=== PATIENT | female | born 1955 | race Caucasian/White ===

== ENCOUNTER → 2018-01-10 14:12 | Outpatient (CLI) | payer OTHER, SELFPAY ==
[2018-01-10 14:54] LABS: Add Manual Diff / Slide Review NO; Basophils Percent Auto 0.3 % (0-2); Eosinophils Percent Auto 0.6 % (2-4); Hematocrit 42.3 % (36-46); Hemoglobin 14.9 g/dL (12.0-16.0); Lymphocytes Percent Auto 16.4 % (25-40); Mean Corpuscular HGB Conc 35.3 % (30-36); Mean Corpuscular Hemoglobin 36.4 PG (26-34); Mean Corpuscular Volume 103.3 fL (80-100); Monocytes Percent Auto 9.5 % (3-14); Neutrophils Absolute Auto 5600 /uL (3000-5900); Neutrophils Percent Auto 73.2 % (50-75); Platelet Count 205 X10^3/uL (150-400); Red Cell Distribution Width 13.6 % (11.6-14.8); White Blood Cell Count 7.7 X10^3/uL (4.5-11.0)
[2018-01-10 16:15] LABS: Vitamin B12 385 pg/mL (239-931)
== END ==
PROVIDERS: PCP Internal Medicine; Visit Provider Internal Medicine
DX: D75.89 Other specified diseases of blood and blood-forming organs (principal)
CPT/HCPCS: 36415; 82607; 82746; 85025

== ENCOUNTER → 2018-12-24 14:15 | Outpatient (CLI) | payer OTHER, SELFPAY ==
[2018-12-24 15:25] LABS: Add Manual Diff / Slide Review NO; Basophils Absolute Auto 0 /uL (0-100); Basophils Percent Auto 0.5 % (0-2); Eosinophils Absolute Auto 100 /uL (0-450); Eosinophils Percent Auto 0.8 % (2-4); Hematocrit 45.7 % (36-46); Lymphocytes Absolute Auto 1600 /uL (1100-4500); Lymphocytes Percent Auto 20.4 % (25-40); Mean Corpuscular Hemoglobin 35.7 PG (26-34); Mean Corpuscular Volume 102.2 fL (80-100); Monocytes Absolute Auto 700 /uL (0-900); Monocytes Percent Auto 8.1 % (3-14); Neutrophils Absolute Auto 5700 /uL (1500-7000); Neutrophils Percent Auto 70.2 % (50-75); Platelet Count 233 X10^3/uL (150-400); Red Blood Cell Count 4.47 X10^6/uL (4.0-5.2); Red Cell Distribution Width 14.1 % (11.6-14.8); White Blood Cell Count 8.1 X10^3/uL (4.5-11.0)
[2018-12-24 15:49] LABS: Erythrocyte Sedimentation Rate 18 MM/HR (0-20)
[2018-12-24 16:14] LABS: Alanine Aminotransferase 42 IU/L (9-52); Albumin Globulin Ratio 1.2 (1.0-2.8); Alkaline Phosphatase 82 U/L (38-126); Aspartate Aminotransferase 43 IU/L (14-36); BUN Creatinine Ratio 17.1 (6-22); Bilirubin Total 0.6 mg/dL (0.2-1.3); Blood Urea Nitrogen 12 mg/dL (7-17); C-Reactive Protein Quant 0.8 mg/dL (<1.0); Calcium 9.7 mg/dL (8.4-10.2); Carbon Dioxide 30 mmol/L (22-32); Chloride 101 mmol/L (98-107); Cholesterol 177 mg/dL (140-199); Estimated Glomerular Filt Rate > 60.0 mL/min (>60); Globulin 3.3 g/dL (1.7-4.1); Glucose 118 mg/dL (80-110); HDL Cholesterol 57 mg/dL (40-60); HEMOLYSIS < 15 (0-50); LDL Cholesterol Calculated 73 mg/dL (<100); Potassium 3.8 mmol/L (3.4-5.1); Sodium 138 mmol/L (137-145); Total Protein 7.3 g/dL (6.3-8.2); Triglycerides 234 mg/dL (35-150)
[2018-12-24 16:25] LABS: Free T4, Direct Thyroxine 1.27 ng/dL (0.78-2.19)
[2018-12-24 16:39] LABS: Thyroid Stimulating Hormone 1.92 uIU/mL (0.47-4.68)
== END ==
PROVIDERS: PCP Internal Medicine; Visit Provider Internal Medicine
DX: D75.89 Other specified diseases of blood and blood-forming organs (principal); I10 Essential (primary) hypertension; R94.5 Abnormal results of liver function studies; R53.83 Other fatigue
CPT/HCPCS: 36415; 80053; 80061; 84439; 84443; 85025; 85651; 86140

== ENCOUNTER → 2020-06-07 08:22 | Outpatient (CLI) | payer OTHER, SELFPAY ==
[2020-06-07 08:54] LABS: Add Manual Diff / Slide Review NO; Basophils Absolute Auto 0 /uL (0-100); Basophils Percent Auto 0.4 % (0-2); Eosinophils Absolute Auto 100 /uL (0-450); Eosinophils Percent Auto 1.3 % (2-4); Hematocrit 44.7 % (36-46); Hemoglobin 15.5 g/dL (12.0-16.0); Lymphocytes Absolute Auto 1300 /uL (1100-4500); Lymphocytes Percent Auto 24.6 % (25-40); Mean Corpuscular HGB Conc 34.7 % (30-36); Mean Corpuscular Hemoglobin 35.7 PG (26-34); Monocytes Absolute Auto 600 /uL (0-900); Monocytes Percent Auto 11.9 % (3-14); Neutrophils Absolute Auto 3200 /uL (1500-7000); Neutrophils Percent Auto 61.8 % (50-75); Platelet Count 197 X10^3/uL (150-400); Red Blood Cell Count 4.34 X10^6/uL (4.0-5.2); Red Cell Distribution Width 13.8 % (11.6-14.8); White Blood Cell Count 5.1 X10^3/uL (4.5-11.0)
[2020-06-07 09:20] LABS: Alanine Aminotransferase 113 IU/L (<35); Albumin 3.8 g/dL (3.5-5.0); Albumin Globulin Ratio 1.1 (1.0-2.8); Alkaline Phosphatase 76 U/L (38-126); Aspartate Aminotransferase 85 IU/L (14-36); BUN Creatinine Ratio 15.9 (6-22); Bilirubin Total 0.8 mg/dL (0.2-1.3); Blood Urea Nitrogen 11 mg/dL (7-17); Calcium 8.9 mg/dL (8.4-10.2); Carbon Dioxide 33 mmol/L (22-32); Chloride 106 mmol/L (98-107); Cholesterol 128 mg/dL (140-199); Estimated Glomerular Filt Rate > 60.0 mL/min (>60); Globulin 3.4 g/dL (1.7-4.1); Glucose 124 mg/dL (80-110); HDL Cholesterol 33 mg/dL (40-60); HEMOLYSIS < 15 (0-50); LDL Cholesterol Calculated 72 mg/dL (<100); Potassium 4.5 mmol/L (3.4-5.1); Sodium 139 mmol/L (137-145); Total Protein 7.2 g/dL (6.3-8.2); Triglycerides 114 mg/dL (35-150)
[2020-06-07 09:53] LABS: TSH w/ Reflex to FT4 2.04 uIU/mL (0.47-4.68)
== END ==
PROVIDERS: PCP Internal Medicine; Referring Provider Internal Medicine; Visit Provider Internal Medicine
DX: I10 Essential (primary) hypertension (principal); R94.5 Abnormal results of liver function studies; D75.89 Other specified diseases of blood and blood-forming organs
CPT/HCPCS: 36415; 80053; 80061; 84443; 85025

== ENCOUNTER → 2020-06-17 11:05 | Outpatient (CLI) | payer OTHER, SELFPAY ==
--- NOTE | 2020-06-17 | DI.MG.S_ITS ---
BILATERAL DIGITAL SCREENING MAMMOGRAM 3D/2D WITH CAD: 06/17/2020 CLINICAL: Routine screening. Comparison is made to exams dated: 06/06/2017 mammogram, 08/14/2014 mammogram, and 06/18/2009 mammogram - [facility]. There are scattered fibroglandular elements in both breasts. Current study was also evaluated with a Computer Aided Detection (CAD) system. No significant masses, calcifications, or other findings are seen in either breast. There has been no significant interval change. IMPRESSION: NEGATIVE There is no mammographic evidence of malignancy. A 1 year screening mammogram is recommended. This exam was interpreted at Station ID: [id number]. NOTE: For mammograms, a report in lay terms will be sent to the patient. Approximately 15% of breast malignancies will not be visualized mammographically. In the management of a palpable breast mass, a negative mammogram must not discourage biopsy of a clinically suspicious lesion. Electronically Signed By: Luis Manuel Gaines acr/jack:06/17/2020 12:04:11 letter sent: Normal Exam ACR BI-RADS Category 1: Negative 3341F
== END ==
PROVIDERS: PCP Internal Medicine; Referring Provider Internal Medicine; Visit Provider Internal Medicine
DX: Z12.31 Encounter for screening mammogram for malignant neoplasm of breast (principal)
CPT/HCPCS: 77063; 77067

== ENCOUNTER → 2021-06-07 07:08 | Outpatient (CLI) | payer OTHER, SELFPAY ==
[2021-06-07 08:55] LABS: Alanine Aminotransferase 58 IU/L (<35); Albumin 3.6 g/dL (3.5-5.0); Albumin Globulin Ratio 1.2 (1.0-2.8); Alkaline Phosphatase 69 U/L (38-126); Aspartate Aminotransferase 51 IU/L (14-36); BUN Creatinine Ratio 15.9 (6-22); Bilirubin Total 0.7 mg/dL (0.2-1.3); Blood Urea Nitrogen 11 mg/dL (7-17); Carbon Dioxide 30 mmol/L (22-32); Chloride 105 mmol/L (98-107); Cholesterol 169 mg/dL (140-199); Estimated Glomerular Filt Rate > 60.0 mL/min (>60); Glucose 127 mg/dL (80-110); HDL Cholesterol 57 mg/dL (40-60); HEMOLYSIS < 15 (0-50); LDL Cholesterol Calculated 80 mg/dL (<100); Potassium 4.2 mmol/L (3.4-5.1); Sodium 141 mmol/L (137-145); Total Protein 6.6 g/dL (6.3-8.2); Triglycerides 161 mg/dL (35-150)
== END ==
PROVIDERS: PCP Internal Medicine; Referring Provider Internal Medicine; Visit Provider Internal Medicine
DX: I10 Essential (primary) hypertension (principal); R94.5 Abnormal results of liver function studies
CPT/HCPCS: 36415; 80053; 80061

== ENCOUNTER → 2022-05-29 14:23 | Outpatient (CLI) | payer OTHER, SELFPAY ==
--- NOTE | 2022-05-29 14:25 | DI.MG.S_ITS ---
BILATERAL DIGITAL SCREENING MAMMOGRAM 3D/2D WITH CAD: 05/29/2022 CLINICAL: Routine screening. Comparison is made to exams dated: 06/17/2020 mammogram, 06/06/2017 mammogram, 08/14/2014 mammogram, and 06/18/2009 mammogram - [facility]. There are scattered areas of fibroglandular density in both breasts (category b / 25%-50% glandular tissue). Current study was also evaluated with a Computer Aided Detection (CAD) system. No significant masses, calcifications, or other findings are seen in either breast. There has been no significant interval change. IMPRESSION: NEGATIVE There is no mammographic evidence of malignancy. A 1 year screening mammogram is recommended. Based on the Tyrer Cuzick model (a risk assessment model) the patient's lifetime risk is 8.6% and her 10 year risk is 4.0%. According to the ACR, ACS, and NCCN guidelines, an annual breast MRI exam along with mammogram is recommended if the patient's lifetime risk is 20% or greater. This exam was interpreted at Station ID: [id number]. NOTE: For mammograms, a report in lay terms will be sent to the patient. Approximately 15% of breast malignancies will not be visualized mammographically. In the management of a palpable breast mass, a negative mammogram must not discourage biopsy of a clinically suspicious lesion. Electronically Signed By: Dorian ellis/jack:05/29/2022 17:04:43 letter sent: Normal Exam ACR BI-RADS Category 1: Negative 3341F
== END ==
PROVIDERS: PCP Internal Medicine; Referring Provider Internal Medicine; Visit Provider Internal Medicine
DX: Z12.31 Encounter for screening mammogram for malignant neoplasm of breast (principal)
CPT/HCPCS: 77063; 77067

== ENCOUNTER → 2022-06-06 08:34 | Outpatient (CLI) | payer OTHER, SELFPAY ==
[2022-06-06 10:23] LABS: Alanine Aminotransferase 51 IU/L (<35); Albumin 3.7 g/dL (3.5-5.0); Albumin Globulin Ratio 1.1 (1.0-2.8); Alkaline Phosphatase 80 U/L (38-126); Aspartate Aminotransferase 64 IU/L (14-36); BUN Creatinine Ratio 18.2 (6-22); Bilirubin Total 1.2 mg/dL (0.2-1.3); Blood Urea Nitrogen 12 mg/dL (7-17); Calcium 8.5 mg/dL (8.4-10.2); Carbon Dioxide 28 mmol/L (22-32); Chloride 101 mmol/L (98-107); Estimated Glomerular Filt Rate > 60 mL/min (>60); Globulin 3.4 g/dL (1.7-4.1); Glucose 142 mg/dL (80-110); HEMOLYSIS 24 (0-50); Potassium 4.3 mmol/L (3.4-5.1); Sodium 138 mmol/L (137-145); Total Protein 7.1 g/dL (6.3-8.2)
== END ==
PROVIDERS: PCP Internal Medicine; Referring Provider Internal Medicine; Visit Provider Internal Medicine
DX: I10 Essential (primary) hypertension (principal); R94.5 Abnormal results of liver function studies
CPT/HCPCS: 36415; 80053

== ENCOUNTER → 2022-06-19 16:09 | Outpatient (CLI) | payer MEDICARE, OTHER, SELFPAY ==
[2022-06-20 18:40] LABS: Hemoglobin A1C% w Est Avg Glu 5.9 % (4.0-6.0)
== END ==
PROVIDERS: PCP Internal Medicine; Referring Provider Internal Medicine; Visit Provider Internal Medicine
DX: R73.9 Hyperglycemia, unspecified (principal); E66.01 Morbid (severe) obesity due to excess calories
CPT/HCPCS: 36415; 83036

== ENCOUNTER → 2022-07-03 11:45 | Outpatient (CLI) | payer MEDICARE, OTHER, SELFPAY ==
[2022-07-03 13:55] LABS: COVID19 -Nasal RAPID Negative (Negative)
== END ==
PROVIDERS: PCP Internal Medicine; Visit Provider Surgery
DX: Z01.812 Encounter for preprocedural laboratory examination (principal); Z20.822 Contact with and (suspected) exposure to COVID-19
CPT/HCPCS: 87635; C9803

== ENCOUNTER → 2022-12-19 10:26 | Outpatient (CLI) | payer MEDICARE, OTHER, SELFPAY ==
[2022-12-19 11:46] LABS: BUN Creatinine Ratio 15.9 (6-22); Blood Urea Nitrogen 10 mg/dL (7-17); Calcium 8.7 mg/dL (8.4-10.2); Carbon Dioxide 28 mmol/L (22-32); Chloride 104 mmol/L (98-107); Estimated Glomerular Filt Rate > 60 mL/min (>60); Glucose 121 mg/dL (80-110); HEMOLYSIS < 15 (0-50); Potassium 4.1 mmol/L (3.4-5.1); Sodium 137 mmol/L (137-145)
[2022-12-20 05:44] LABS: x Labcorp Estim. Avg Glu (eAG) 120 mg/dL (.); x Labcorp Hemoglobin A1c 5.8 % (4.8-5.6)
== END ==
PROVIDERS: PCP Internal Medicine; Referring Provider Internal Medicine; Visit Provider Internal Medicine
DX: E11.9 Type 2 diabetes mellitus without complications (principal)
CPT/HCPCS: 36415; 80048; 83036

== ENCOUNTER → 2023-06-12 08:46 | Outpatient (CLI) | payer MEDICARE, OTHER, SELFPAY ==
[2023-06-12 10:34] LABS: Alanine Aminotransferase 60 IU/L (<35); Albumin 3.8 g/dL (3.5-5.0); Albumin Globulin Ratio 1.2 (1.0-2.8); Alkaline Phosphatase 77 U/L (38-126); Aspartate Aminotransferase 65 IU/L (14-36); BUN Creatinine Ratio 20.3 (6-22); Bilirubin Total 1.2 mg/dL (0.2-1.3); Bilirubin Unconjugated 0.9 mg/dL (0.0-1.1); Blood Urea Nitrogen 14 mg/dL (7-17); Calcium 9.3 mg/dL (8.4-10.2); Carbon Dioxide 30 mmol/L (22-32); Chloride 100 mmol/L (98-107); Estimated Glomerular Filt Rate > 60 mL/min (>60); Globulin 3.3 g/dL (1.7-4.1); Glucose 154 mg/dL (80-110); HEMOLYSIS < 15 (0-50); Potassium 4.3 mmol/L (3.4-5.1); Sodium 134 mmol/L (137-145); Total Protein 7.1 g/dL (6.3-8.2)
== END ==
PROVIDERS: PCP Internal Medicine; Referring Provider Internal Medicine; Visit Provider Internal Medicine
DX: I10 Essential (primary) hypertension (principal); R94.5 Abnormal results of liver function studies
CPT/HCPCS: 36415; 80048; 80076

== ENCOUNTER → 2023-06-22 11:31 | Outpatient (CLI) | payer MEDICARE, OTHER, SELFPAY ==
[2023-06-22 12:41] LABS: Hemoglobin A1C% w Est Avg Glu 5.9 % (4.0-6.0)
== END ==
PROVIDERS: PCP Internal Medicine; Referring Provider Internal Medicine; Visit Provider Internal Medicine
DX: I10 Essential (primary) hypertension (principal); R73.02 Impaired glucose tolerance (oral)
CPT/HCPCS: 36415; 83036

== ENCOUNTER → 2023-07-03 12:57 | Outpatient (CLI) | payer MEDICARE, OTHER, SELFPAY ==
--- NOTE | 2023-07-03 12:59 | DI.MG.S_ITS ---
BILATERAL DIGITAL SCREENING MAMMOGRAM 3D/2D WITH CAD: 07/03/2023 CLINICAL: Routine screening. Comparison is made to exams dated: 05/29/2022 mammogram, 06/17/2020 mammogram, and 06/06/2017 mammogram - [facility]. Both breasts are almost entirely fatty (category a/<25% glandular tissue). Current study was also evaluated with a Computer Aided Detection (CAD) system. No significant masses, calcifications, or other findings are seen in either breast. There has been no significant interval change. IMPRESSION: NEGATIVE There is no mammographic evidence of malignancy. A 1 year screening mammogram is recommended. Based on the Tyrer Cuzick model (a risk assessment model) the patient's lifetime risk is 5.2% and her 10 year risk is 2.6%. According to the ACR, ACS, and NCCN guidelines, an annual breast MRI exam along with mammogram is recommended if the patient's lifetime risk is 20% or greater. This exam was interpreted at Station ID: [id number]. NOTE: For mammograms, a report in lay terms will be sent to the patient. Approximately 15% of breast malignancies will not be visualized mammographically. In the management of a palpable breast mass, a negative mammogram must not discourage biopsy of a clinically suspicious lesion. Electronically Signed By: Verona beverly/jack:07/03/2023 14:51:06 letter sent: Normal Exam ACR BI-RADS Category 1: Negative 3341F
== END ==
PROVIDERS: PCP Internal Medicine; Referring Provider Internal Medicine; Visit Provider Internal Medicine
DX: Z12.31 Encounter for screening mammogram for malignant neoplasm of breast (principal)
CPT/HCPCS: 77063; 77067

== ENCOUNTER 2023-08-22 16:56 | Emergency (ER) | payer MEDICARE, OTHER, SELFPAY ==
--- NOTE | 2023-08-22 16:59 | DI.CT.S_ITS ---
PROCEDURE: CT HEAD/BRAIN WO CON INDICATIONS: FALL DOWN STAIRS, HEAD/NECK INJURY TECHNIQUE: Noncontrast 4.5 mm thick angled axial sections acquired from the foramen magnum to the vertex, with coronal and sagittal reformats. For radiation dose reduction, the following was used: automated exposure control, adjustment of mA and/or kV according to patient size. COMPARISON: None. FINDINGS: Image quality: Diagnostic. CSF spaces: Basal cisterns are patent. No extra-axial fluid collections. The ventricles are symmetric in size and shape. Brain: No intracranial bleeds or masses. There is cerebral volume loss for age, with resultant ventricular and sulcal prominence. There are periventricular and deep white matter chronic small vessel ischemic changes. There is intracranial internal carotid artery atherosclerosis. Skull and face: Calvarium and visualized facial bones appear intact, without suspicious lesions. Sinuses: Visualized sinuses and mastoids are clear. IMPRESSION: 1. No acute intracranial abnormalities. 2. Cerebral volume loss and chronic microvascular ischemic changes. Dictated by: Trinh Justin M.D. on 08/22/2023 at 17:33 Approved by: Trinh Justin M.D. on 08/22/2023 at 17:34
--- NOTE | 2023-08-22 16:59 | DI.CT.S_ITS ---
PROCEDURE: CT CERVICAL SPINE WO CON INDICATIONS: FALL DOWN STAIRS, HEAD/NECK INJURY TECHNIQUE: Noncontrast 3 mm thick sections acquired from the skull base to the T4 level. Sagittal and coronal reformats were then constructed. For radiation dose reduction, the following was used: automated exposure control, adjustment of mA and/or kV according to patient size. COMPARISON: None. FINDINGS: Image quality: Excellent. Bones: No fractures or dislocations. Moderate degenerative disc and facet disease. Visualized superior ribs are intact. Soft tissues: Prevertebral soft tissues are normal in thickness. No paravertebral hematomas. No apical pneumothoraces. IMPRESSION: No fracture or traumatic subluxation. Dictated by: Trinh Justin M.D. on 08/22/2023 at 17:39 Approved by: Trinh Justin M.D. on 08/22/2023 at 17:42
--- NOTE | 2023-08-22 17:02 | ED_ITS ---
HPI - Fall General Chief Complaint: Wound/Laceration Stated Complaint: Fell down a few stairs, LAC to the head Time Seen by Provider: 08/22/23 16:59 History of Present Illness HPI Narrative: 68-year-old female presents by EMS for fall down several steps with head injury. Patient had several alcoholic beverages at [employer] and slipped, falling several steps and striking her head. Denies LOC. Denies use of blood thinners. Last tetanus shot in 2018. Related Data Previous Rx's Medication Instructions Recorded metoprolol succinate 100 mg 100 mg PO DAILY #90 tabs 07/02/23 tablet,extended release 24 hr Allergies Allergy/AdvReac Type Severity Reaction Status Date / Time No Known Drug Allergies Allergy Verified 06/22/23 10:48 Review of Systems Review of Systems Narrative: Negative except as noted above Patient History Medical History (Updated 08/24/23 @ 07:16 by Ev Barillas MD) Impaired glucose tolerance Lichen sclerosus of female genitalia Morbid obesity Macrocytosis without anemia Rosacea (~2003) Hepatitis (~1985) Gastrointestinal problem (~2014) Abnormal liver function tests (09/27/17) Essential hypertension (08/30/17) Surgical History (Updated 07/14/23 @ 20:19 by Casandra Erickson) Anesthesia History of surgery (~2010) History of tonsillectomy (~1984) Status post appendectomy (~1975) History of third molar tooth extraction (~1970) Family History (Updated 07/14/23 @ 20:20 by Casandra Erickson) Mother History of heart disease Grandmother No problems noted. 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 leisure activities: exercise and other (Gardening, sudoku, puzzles) Smoking Status: Never smoker Tobacco: How many years used: 0 quit status: quit date established (Never Started) second hand exposure: No alcohol intake: current (a couple of drinks a day) substance use type: does not use Smoking Status: Never smoker Exam Initial Vital Signs Initial Vital Signs: Vital Signs Temperature 97.7 F 08/22/23 17:05 Pulse Rate 95 H 08/22/23 17:05 Respiratory Rate 18 08/22/23 17:05 Blood Pressure 124/57 L 08/22/23 17:05 Pulse Oximetry 97 08/22/23 17:05 Oxygen Delivery Method Room Air 08/22/23 17:05 Const: Awake, alert, blood on face Eyes: PERRL, EOMI, conjunctiva normal ENT: Atraumatic, dentition normal, mucous membranes moist Cardiac: regular rate, regular rhythm RESP: unlabored, clear bilaterally, no wheezing GI: Atraumatic, soft, nontender, nondistended, no rebound, no guarding MSK: Atraumatic, full range of motion, pulses equal Skin: Warm, Dry, 4 cm horizontal laceration over left eyebrow Neuro: AO x3, CN II-XII grossly intact, moves all extremities Procedures Laceration Repair Laceration 1: Site: face Side (If applicable): left Size (cm): 4 Description: linear Depth: simple, single layer Local Anesthetic: lidocaine 1% and with epi Amount of anesthesia used (mL): 5 Pre-repair: wound explored, irrigated extensively and deep structures intact Skin layer closed with: nylon Skin layer suture size: 5-0 Number of sutures: 8 Technique: simple, interrupted Course Orders Ordered: Discontinued Medications Diphtheria/Tetanus/Acell Pertussis (Tet,Diph,Pertuss(Acell),Vac/Pf 0.5 Ml Syringe) 0.5 ml IM .ONCE ONE Stop: 08/22/23 17:30 Last Admin: 08/22/23 17:33 Dose: Not Given Documented By: ELSI Lidocaine/Epinephrine (Lidocaine 1% W/Epi) 20 ml SUBCUT NOW ONE Stop: 08/22/23 17:30 Last Admin: 08/22/23 17:37 Dose: 20 ml Documented By: ELSI Vital Signs Vital signs: Vital Signs - 8 hr 08/22/23 17:05 08/22/23 18:06 Temperature 97.7 F Pulse Rate 95 H 82 Respiratory Rate 18 Blood Pressure 124/57 L 94/55 L Pulse Oximetry 97 94 Oxygen Delivery Method Room Air Room Air MDM - Fall Differential Diagnosis Differential diagnosis: Likely concussion with loss of consciousness, concussion without loss of consciousness and other (facial laceration) Lab Data Labs: Point of Care Testing Glucose POC 144 MDM Narrative Medical decision making narrative: Fall down several stairs and alcohol use. Laceration noted to left forehead. CT imaging of brain and C-spine negative for acute traumatic findings. Wound was repaired per procedure note and 8 stitches placed in the forehead. Clean bandage applied and wound care instructions discussed with patient and at bedside. Patient discharged home in stable condition. #415 - Emergency Medicine: Utilization of CT for Minor Blunt Head Trauma (Adult) Patient is 18 or older, presenting with minor blunt head trauma. Head CT (including cosigned orders) was ordered by an emergency palliative care nurse for trauma because the patient: [ ] is vomiting\ severe/dangerous mechanism of injury was identified [ ] is experiencing a severe headache [ ] sustained loss of consciousness [ ] GCS less than 15 [ ] is experiencing amnesia of the event or focal neurologic deficit [ ] sustained injury above the clavicles [ ] is suspected of taking anticoagulant medications [ x] is 65 years or older [ x] is intoxicated Patient has one or more of the following conditions that are excluded from the measure: [ ] Patient has ventricular shunt [ ] Patient has brain tumor [ ] Patient is [ ] Patient has multi-system trauma [ ] Patient taking an antiplatelet medication (excluding aspirin) Discharge Plan Departure Patient Disposition: Home Clinical Impression: Laceration, Fall (on) (from) other stairs and steps, initial encounter Instructions: DI for Laceration Repair Activity Restrictions/Additional Instructions: Sutures need to be removed in 7 days. Keep clean and dry. Wear sunscreen to prevent scar darkening. Prescriptions: No Action metoprolol succinate 100 mg tablet extended release 24 hr 100 mg PO DAILY Qty: 90 3RF Referrals: Robby Clarke MD [Primary Care Provider] - Stand Alone Forms: Patient Portal/API
[2023-08-22 17:05] VITALS: BP 124/57; PULSE 95; RESP 18; TEMP 36.5; O2SAT 97; BMI 45.3
[2023-08-22] MEDS: LIDOCAINE 1% W/EPI 20 ML SUBCUT (17:37)
[2023-08-22 18:06] VITALS: BP 94/55; PULSE 82; O2SAT 94
== END 2023-08-22 18:12 | disposition home or self-care (01) ==
PROVIDERS: Emergency Provider Emergency Medicine; PCP Internal Medicine
DX: S01.81XA Laceration without foreign body of other part of head, initial encounter (principal); M54.2 Cervicalgia; W01.0XXA Fall on same level from slipping, tripping and stumbling without subsequent striking against object, initial encounter; F10.129 Alcohol abuse with intoxication, unspecified
CPT/HCPCS: 12013; 70450; 72125; 82962; 99284

== ENCOUNTER 2023-10-05 13:41 | Emergency (ER) | payer MEDICARE, OTHER, SELFPAY ==
[2023-10-05 13:54] VITALS: BP 151/80; PULSE 98; RESP 20; TEMP 37.1; O2SAT 99; BMI 41.5
--- NOTE | 2023-10-05 14:19 | DI.RAD.S_ITS ---
PROCEDURE: XR SHOULDER RT MIN 2V INDICATIONS: fall TECHNIQUE: 3 views of the shoulder were acquired. COMPARISON: None. FINDINGS: Bones: Comminuted, displaced fracture of the proximal right humeral shaft a short distance distal to the humeral neck. Remainder of the visualized osseous structures appear intact. Acromioclavicular and coracoclavicular intervals are maintained. Possible mild widening of the glenohumeral joint space which may be related to positioning versus possible joint effusion. Soft tissues: No suspicious soft tissue calcifications. IMPRESSION: Comminuted fracture of the proximal right humeral diaphysis. Dictated by: Obey Sanchez M.D. on 10/05/2023 at 15:26 Approved by: Obey Sanchez M.D. on 10/05/2023 at 15:28
--- NOTE | 2023-10-05 15:43 | DI.CT.S_ITS ---
PROCEDURE: CT UE RT WO CON INDICATIONS: R displaced comminuted humerus fx TECHNIQUE: Noncontrast 0.75 mm thick sections acquired from the acromioclavicular joint to the inferior scapula, with coronal and sagittal reformatting. COMPARISON: [facility], CR, XR SHOULDER RT MIN 2V, 10/05/2023, 14:19. FINDINGS: Image quality: Excellent. Bones: There is a complex comminuted displaced and overlapped fracture involving the right humeral head and neck. The inferior fracture margin is overlapped and displaced cephalad towards the humeral head/neck junction, and there is comminution of the humeral diaphysis proximally. Slightly displaced fracture planes can be seen extending cephalad into the humeral head both anteriorly and posteriorly, and the humeral articular surface appears mildly displaced posteriorly but not dislocated from the glenoid fossa. The scapula appears free of trauma as do the adjacent ribs and no underlying pneumothorax is seen. Soft tissues: Probable hematoma at the anterior border of the fracture planes. IMPRESSION: Complex comminuted proximal right humeral head and neck fractures overlapped and displaced as discussed with soft tissue hematoma mild in severity at the anterior border of the fracture planes. Dictated by: Jered Feliciano M.D. on 10/05/2023 at 16:49 Approved by: Jered Feliciano M.D. on 10/05/2023 at 16:52
[2023-10-05 17:12] VITALS: BP 133/69; PULSE 104; RESP 24; O2SAT 95
--- NOTE | 2023-10-05 17:13 | ED.UPPEXIN ---
HPI - Extremity Injury (Upper) <Niki Irvin PA-C - Last Filed: 10/05/23 17:24> General Chief Complaint: Extremity Injury, Upper Stated Complaint: fall, R shoulder/arm injury Time Seen by Provider: 10/05/23 14:26 Source: patient Mode of arrival: Ambulatory History of Present Illness HPI narrative: Patient is a 68 year old female with hx HTN who presents with right shoulder/upper arm swelling. She reports slipping out of bed last night when she got up to use the bathroom and falling onto her right shoulder. She didn't have any pain and went back to bed. Denies hitting her head or LOC, no blood thinners. This morning she awoke to significant swelling and bruising over her upper arm and mild pain with movement. She reports a feeling like my hand is disconnected from my arm. Has not taken any medications. Pain currently 07/25. Related Data Previous Rx's Medication Instructions Recorded metoprolol succinate 100 mg 100 mg PO DAILY #90 tabs 07/02/23 tablet,extended release 24 hr hydrocodone 5 mg-acetaminophen 325 1 tab PO Q6H PRN pain #14 tabs 10/05/23 mg tablet Allergies Allergy/AdvReac Type Severity Reaction Status Date / Time No Known Drug Allergies Allergy Verified 06/22/23 10:48 Review of Systems <Niki Irvin PA-C - Last Filed: 10/05/23 17:24> Review of Systems ROS Unobtainable: All systems reviewed & are unremarkable except as noted in HPI and below Patient History <Niki Irvin PA-C - Last Filed: 10/05/23 17:24> Medical History Impaired glucose tolerance Lichen sclerosus of female genitalia Morbid obesity Macrocytosis without anemia Rosacea (~2003) Hepatitis (~1985) Gastrointestinal problem (~2014) Abnormal liver function tests (09/27/17) Essential hypertension (08/30/17) Surgical History Anesthesia History of surgery (~2010) History of tonsillectomy (~1984) Status post appendectomy (~1975) History of third molar tooth extraction (~1970) Family History Mother History of heart disease Grandmother No problems noted. Brother Diabetes mellitus Social History marital status: number of children: 0 household members: spouse lives independently: Yes caregiver/support person: No housing: house pets and animals: Yes education level: high school ([employer] program) occupational status: other (Retired) Previous occupational history: Registered [employer] leisure activities: exercise and other (Gardening, [employer], puzzles) Smoking Status: Never smoker Tobacco: How many years used: 0 quit status: quit date established (Never Started) second hand exposure: No alcohol intake: current (a couple of drinks a day) substance use type: does not use Smoking Status: Never smoker alcohol intake frequency: 3 or more drinks per day Substance Use Type: does not use Exam <Niki Irvin PA-C - Last Filed: 10/05/23 17:24> Narrative Exam Narrative: GENERAL: 68 year old patient appears stated age. Well-developed patient, in no distress. NEURO: AOx3. HEAD: Atraumatic. Normocephalic. EYES: Pupils equal round and reactive. Extraocular motions intact. No scleral icterus. No injection or drainage. ENT: Nose without bleeding or purulent drainage. Airway patent. RESPIRATORY:No increased work of breathing EXTREMITIES: Significant edema of the upper humurus with some bruising. Distal neurovascular exam is intact, strong pulse, fingers pink and warm. No tenderness to palpation over the anterior shoulder. SKIN: No rash or erythema of visible areas Initial Vital Signs Initial Vital Signs: Vital Signs Temperature 98.8 F 10/05/23 13:54 Pulse Rate 98 H 10/05/23 13:54 Respiratory Rate 20 10/05/23 13:54 Blood Pressure 151/80 H 10/05/23 13:54 Pulse Oximetry 99 10/05/23 13:54 Oxygen Delivery Method Room Air 10/05/23 13:54 <Ev Eckert DO - Last Filed: 10/05/23 19:30> Initial Vital Signs Initial Vital Signs: Vital Signs Temperature 98.8 F 10/05/23 13:54 Pulse Rate 98 H 10/05/23 13:54 Respiratory Rate 20 10/05/23 13:54 Blood Pressure 151/80 H 10/05/23 13:54 Pulse Oximetry 99 10/05/23 13:54 Oxygen Delivery Method Room Air 10/05/23 13:54 Course <Niki Irvin PA-C - Last Filed: 10/05/23 17:24> Orders Ordered: ED Orders 10/05/23 14:19 XR shoulder RT min 2V Stat 10/05/23 15:43 CT UE RT wo con Stat Consultations Consultation #1: Dr. Taveras, Ortho; recommends CT for detail, then sling and refer to clinic Vital Signs Vital signs: Vital Signs - 8 hr 10/05/23 13:54 10/05/23 17:12 Temperature 98.8 F Pulse Rate 98 H 104 H Respiratory Rate 20 24 Blood Pressure 151/80 H 133/69 Pulse Oximetry 99 95 Oxygen Delivery Method Room Air Room Air <Ev Eckert DO - Last Filed: 10/05/23 19:30> Orders Ordered: ED Orders 10/05/23 14:19 XR shoulder RT min 2V Stat 10/05/23 15:43 CT UE RT wo con Stat Vital Signs Vital signs: Vital Signs - 8 hr 10/05/23 13:54 10/05/23 17:12 Temperature 98.8 F Pulse Rate 98 H 104 H Respiratory Rate 20 24 Blood Pressure 151/80 H 133/69 Pulse Oximetry 99 95 Oxygen Delivery Method Room Air Room Air MDM - Extremity Injury (Upper) <Niki Irvin PA-C - Last Filed: 10/05/23 17:24> Imaging Data Extremity x-ray #1: Radiologist's Impression: PROCEDURE: XR SHOULDER RT MIN 2V INDICATIONS: fall TECHNIQUE: 3 views of the shoulder were acquired. COMPARISON: None. FINDINGS: Bones: Comminuted, displaced fracture of the proximal right humeral shaft a short distance distal to the humeral neck. Remainder of the visualized osseous structures appear intact. Acromioclavicular and coracoclavicular intervals are maintained. Possible mild widening of the glenohumeral joint space which may be related to positioning versus possible joint effusion. Soft tissues: No suspicious soft tissue calcifications. IMPRESSION: Comminuted fracture of the proximal right humeral diaphysis. Dictated by: Obey Sanchez M.D. on 10/05/2023 at 15:26 Approved by: Obey Sanchez M.D. on 10/05/2023 at 15:28 CT RUE: Radiologist's Impression: PROCEDURE: CT UE RT WO CON INDICATIONS: R displaced comminuted humerus fx TECHNIQUE: Noncontrast 0.75 mm thick sections acquired from the acromioclavicular joint to the inferior scapula, with coronal and sagittal reformatting. COMPARISON: [facility], CR, XR SHOULDER RT MIN 2V, 10/05/2023, 14:19. FINDINGS: Image quality: Excellent. Bones: There is a complex comminuted displaced and overlapped fracture involving the right humeral head and neck. The inferior fracture margin is overlapped and displaced cephalad towards the humeral head/neck junction, and there is comminution of the humeral diaphysis proximally. Slightly displaced fracture planes can be seen extending cephalad into the humeral head both anteriorly and posteriorly, and the humeral articular surface appears mildly displaced posteriorly but not dislocated from the glenoid fossa. The scapula appears free of trauma as do the adjacent ribs and no underlying pneumothorax is seen. Soft tissues: Probable hematoma at the anterior border of the fracture planes. IMPRESSION: Complex comminuted proximal right humeral head and neck fractures overlapped and displaced as discussed with soft tissue hematoma mild in severity at the anterior border of the fracture planes. Dictated by: Jered Feliciano M.D. on 10/05/2023 at 16:49 Approved by: Jered Feliciano M.D. on 10/05/2023 at 16:52 MDM Narrative Medical decision making narrative: Multiple etiologies for patient's symptoms considered including, but not limited to: fracture, dislocation, soft tissue injury, hematoma Xray shows comminuted displaced proximal humerus fracture. Patient without pain, neurovascularly intact. Discussed case with Dr. Taveras who advises to obtain CT scan for more detail. CT scan obtained. Patient placed in a sling, provided education on RA CE and obtaining follow up care with orthopedic clinic. Return precautions discussed. Patient currently not in pain but I have sent a prescription for stronger pain medication to her pharmacy in case she needs it. Patient's symptoms improved over duration of stay with above-stated therapies. Findings and discharge diagnosis discussed with patient/family followed by verbalization of understanding Return precautions discussed with patient/family whom verbalize understanding of diagnosis and plan Discharge Plan Departure Patient Disposition: Home Clinical Impression: Displaced fracture of right humerus Qualifiers: Encounter type: initial encounter Humerus Location: proximal Fracture type: closed Fracture morphology: other fracture Qualified Code(s): S42.291A - Other displaced fracture of upper end of right humerus, initial encounter for closed fracture Instructions: DI for Humeral Fracture Activity Restrictions/Additional Instructions: *You have been diagnosed with right comminuted and displaced humerus fracture. We obtained x-ray and CT today for more information. You need to follow up with [facility] next week for assessment. Their contact information is below. Please wear the sling to provide support for your arm. The hope is that gravity will pull the bones into better alignment over time. You can take Tylenol and ibuprofen for pain as needed. I have prescribed a stronger pain medicine in case this is not enough. *What to do: *Please continue to take your regular medications as directed. [x] New medication prescriptions sent to your pharmacy: [ ] [ ] New medication written as a paper prescription [ ] No new medications given *Please follow up with your primary care provider in 2-3 days, call for an appointment. Let them know you were seen in the Emergency Department and that we ask that you be seen in follow up. We will electronically transmit a record of today's note if your PCP is in our system *If you do not have a primary care provider please contact the [facility] Resource line at [phone]. They will ask some questions about your medical history and help get you set up with a doctor in the community. *Return to Emergency Department if you should have any new, worsening or concerning symptoms, such as [fever greater than 101 F, shaking chills, worsening pain, persistent vomiting or other concerning symptoms]. Prescriptions: New hydrocodone-acetaminophen 5-325 mg tablet 1 tab PO Q6H PRN (Reason: pain) Qty: 14 0RF No Action metoprolol succinate 100 mg tablet extended release 24 hr 100 mg PO DAILY Qty: 90 3RF Referrals: [facility] [Provider Group] Robby Clarke MD [Primary Care Provider] - Stand Alone Forms: Patient Portal/API ED Sign-out <Ev Eckert DO - Last Filed: 10/05/23 19:30> Cosign ED Attending Anupam Attestation: I was immediately available in the department for consultation.
== END 2023-10-05 17:12 | disposition home or self-care (01) ==
PROVIDERS: Emergency Provider Physician Assistant; PCP Internal Medicine
DX: S42.291A Other displaced fracture of upper end of right humerus, initial encounter for closed fracture (principal); W06.XXXA Fall from bed, initial encounter
CPT/HCPCS: 73030; 73200; 99282; 99283

== ENCOUNTER → 2024-08-06 06:54 | Outpatient (CLI) | payer MEDICARE, OTHER, SELFPAY ==
[2024-08-06 07:36] LABS: Add Manual Diff / Slide Review NO; Basophils Absolute Auto 0 /uL (0-100); Basophils Percent Auto 0.7 % (0-2); Eosinophils Absolute Auto 100 /uL (0-450); Eosinophils Percent Auto 2.8 % (2-4); Hematocrit 43.6 % (36-46); Hemoglobin 15.2 g/dL (12.0-16.0); Lymphocytes Absolute Auto 1200 /uL (1100-4500); Lymphocytes Percent Auto 25.1 % (25-40); Mean Corpuscular HGB Conc 34.8 % (30-36); Mean Corpuscular Hemoglobin 34.9 PG (26-34); Mean Corpuscular Volume 100.1 fL (80-100); Monocytes Absolute Auto 500 /uL (0-900); Neutrophils Absolute Auto 2900 /uL (1500-7000); Neutrophils Percent Auto 60.4 % (50-75); Platelet Count 170 X10^3/uL (150-400); Red Blood Cell Count 4.35 X10^6/uL (4.0-5.2); Red Cell Distribution Width 13.6 % (11.6-14.8); White Blood Cell Count 4.9 X10^3/uL (4.5-11.0)
[2024-08-06 07:56] LABS: Alanine Aminotransferase 58 IU/L (<35); Albumin 3.7 g/dL (3.5-5.0); Albumin Globulin Ratio 1.3 (1.0-2.8); Alkaline Phosphatase 89 U/L (38-126); Aspartate Aminotransferase 61 IU/L (14-36); BUN Creatinine Ratio 14.3 (6-22); Bilirubin Total 0.7 mg/dL (0.2-1.3); Blood Urea Nitrogen 10 mg/dL (7-17); Calcium 9.1 mg/dL (8.4-10.2); Carbon Dioxide 29 mmol/L (22-32); Chloride 103 mmol/L (98-107); Cholesterol 197 mg/dL (140-199); Estimated Glomerular Filt Rate > 60 mL/min (>60); Globulin 2.9 g/dL (1.7-4.1); Glucose 167 mg/dL (80-110); HDL Cholesterol 65 mg/dL (40-60); HEMOLYSIS < 15 (0-50); LDL Cholesterol Calculated 101 mg/dL (<100); Potassium 4.4 mmol/L (3.4-5.1); Sodium 136 mmol/L (137-145); Total Protein 6.6 g/dL (6.3-8.2); Triglycerides 156 mg/dL (35-150)
== END ==
PROVIDERS: PCP Internal Medicine; Referring Provider Internal Medicine; Visit Provider Internal Medicine
DX: I10 Essential (primary) hypertension (principal); R94.5 Abnormal results of liver function studies; D75.89 Other specified diseases of blood and blood-forming organs; R73.02 Impaired glucose tolerance (oral)
CPT/HCPCS: 36415; 80053; 80061; 85025

== ENCOUNTER → 2024-08-25 14:22 | Outpatient (CLI) | payer MEDICARE, OTHER, SELFPAY ==
[2024-08-25 14:52] LABS: Hemoglobin A1C% w Est Avg Glu 6.2 % (4.0-6.0)
== END ==
PROVIDERS: PCP Internal Medicine; Referring Provider Internal Medicine; Visit Provider Internal Medicine
DX: R73.02 Impaired glucose tolerance (oral) (principal)
CPT/HCPCS: 36415; 83036

== ENCOUNTER → 2025-06-08 11:34 | Outpatient (CLI) | payer MEDICARE, OTHER, SELFPAY ==
--- NOTE | 2025-06-08 11:38 | DI.MG.S_ITS ---
MM screening mammo BI: 06/08/2025. BI-RADS: 1 CLINICAL: 69-year old female for bilateral screening mammogram. Tyrer-Cuzick lifetime risk of 4.5%. No personal or first-degree family history of breast cancer. PRIOR EXAMS 07/03/2023, 05/29/2022, 06/17/2020, 06/06/2017. MAMMOGRAPHY TECHNIQUE: 2D and 3D (tomosynthesis) digital mammographic views obtained, with additional images as needed for full coverage. Current study was also evaluated with a Computer Aided Detection (CAD) system. DENSITY A. The breasts are almost entirely fatty. MAMMOGRAPHY FINDINGS Bilateral: No suspicious mass, asymmetry, microcalcification, or other abnormality seen. IMPRESSION: * No evidence of malignancy. RECOMMENDATIONS Bilateral * Annual screening mammography. OVERALL ASSESSMENT CATEGORY BI-RADS-1: Negative. The [employer] recommends annual screening mammography beginning at age 40 for women with average risk of breast cancer. ELECTRONICALLY SIGNED: Rebecca Funk M.D. on 06/09/2025 at 10:17:32 PM PT Interpreting Station ID: [id number]
== END ==
LOC: MAMMO 11:38
PROVIDERS: PCP Internal Medicine; Referring Provider Internal Medicine; Visit Provider Internal Medicine
DX: Z12.31 Encounter for screening mammogram for malignant neoplasm of breast (principal); R92.313 Mammographic fatty tissue density, bilateral breasts
CPT/HCPCS: 77063; 77067